=== PATIENT | female | born 1935 | race African-American/Black ===

== ENCOUNTER 2016-11-12 00:32 | Observation (INO) | payer OTHER ==
[~2016-11-12] VITALS: Ht 162.6 cm; Wt 67.5 kg
[2016-11-12 01:03] LABS: HEMATOCRIT 37.5 % (36.0-46.0); MCH 31.2 PG (29.0-34.0); MCHC 34.4 G/DL (30.0-36.0); MCV 90.8 FL (83-99); MEAN PLAT.VOLUME 11.1 uM^3 (9.5-12.4); PLATELET COUNT 225 K/uL (156-360); RBC DIS.WIDTH-CV 12.4 % (11.8-14.6); RBC DIS.WIDTH-SD 41.2 % (39-53); RED BLOOD COUNT 4.13 M/uL (3.80-5.20); WHITE BLOOD COUNT 15.7 K/uL (4.1-10.2)
[2016-11-12 01:17] LABS: CHLORIDE 108 mEq/L (99-109); POTASSIUM 4.6 mEq/L (3.7-5.4); SODIUM 140 mEq/L (136-147)
[2016-11-12 01:19] LABS: GLUCOSE 121 mg/dL (70-99)
[2016-11-12 01:21] LABS: ANION GAP 15 MEQ/L (2-14)
[2016-11-12 01:23] LABS: GFR ESTIMATE (CALCULATED) 56 mL/min/
[2016-11-12 01:24] LABS: UREA NITROGEN (BUN) 19 mg/dL (9-23)
[2016-11-12 01:26] LABS: CREATINE KINASE 230 IU/L (1-294); TOTAL CK 230 IU/L (1-294)
[2016-11-12 01:34] LABS: CK-MB 3.5 ng/mL (0.0-4.9)
[2016-11-12 03:17] LABS: ADD MIUA? YES; BILIRUBIN NEGATIVE; BLOOD SMALL; COLOR YELLOW ((YELLOW)); GLUCOSE (STRIP) NEGATIVE; KETONES 5; LEUKOCYTES TRACE; NITRITE NEGATIVE; PROTEIN (STRIP) 30; SPECIFIC GRAVITY 1.015 (1.000-1.030); UROBILINOGEN 0.2 MG/DL (0.2-1.0)
[2016-11-12 03:54] LABS: BACTERIA NONE SEEN /HPF; EPITHELIAL CELLS 1+ /HPF; MUCUS TRACE /LPF; UCUL ADDED? NO; WHITE BLOOD CELLS 0-5 /HPF (0-5)
[2016-11-12] MEDS ORDERED: AMLODIPINE BES2.5 MG PO (04:06)
[2016-11-12] MEDS ORDERED: LEVOTHYROXINE112 MCG PO (04:08)
[2016-11-12] MEDS ORDERED: CLONAZEPAM1 MG PO (04:09)
[2016-11-12] MEDS ORDERED: PAROXETINE HCL40 MG PO (04:10)
[2016-11-12] MEDS ORDERED: LOSARTAN POTAS100 MG PO (04:10)
[2016-11-12 06:13] VITALS: BP 145/64
[2016-11-12 11:36] VITALS: BP 146/65
[2016-11-12] MEDS ORDERED: REFRESH TEARS15 ML BOTH EYES (12:52)
[2016-11-12] MEDS ORDERED: TOBRADEX ST EYE5 ML RIGHT EYE (12:53)
[2016-11-12 15:44] VITALS: BP 139/64
[2016-11-12 19:30] VITALS: BP 128/59
[2016-11-12 23:31] VITALS: BP 191/83
[2016-11-13 00:34] VITALS: BP 170/76
[2016-11-13 02:00] VITALS: BP 128/59
[2016-11-13 03:56] VITALS: BP 145/86
[2016-11-13 05:37] LABS: EOSINOPHIL (%) 1.8 % (0-5); EOSINOPHIL COUNT 0.2 K/uL (0-0.3); HEMATOCRIT 34.2 % (36.0-46.0); IMMATURE GRANULOCYTE (%) 0.2 % (0.0-0.7); INSTRUMENT ABS NEUTROPHIL CT 4.4 K/uL; LYMPHOCYTE COUNT 3.1 K/uL (1.0-2.8); MCH 30.9 PG (29.0-34.0); MCHC 33.3 G/DL (30.0-36.0); MCV 92.7 FL (83-99); MEAN PLAT.VOLUME 10.9 uM^3 (9.5-12.4); MONOCYTE (%) 10.6 % (3-12); MONOCYTE COUNT 0.9 K/uL (0-0.8); NEUTROPHIL (%) 50.9 % (45-76); NEUTROPHIL COUNT 4.4 K/uL (1.8-6.4); PLATELET COUNT 203 K/uL (156-360); RBC DIS.WIDTH-CV 12.6 % (11.8-14.6); RBC DIS.WIDTH-SD 42.7 % (39-53); RED BLOOD COUNT 3.69 M/uL (3.80-5.20); WHITE BLOOD COUNT 8.7 K/uL (4.1-10.2)
[2016-11-13 06:03] LABS: ANION GAP 7 MEQ/L (2-14); CHLORIDE 107 MEQ/L (99-109); GFR ESTIMATE (CALCULATED) > 59 mL/min/; GLUCOSE 98 mg/dL (70-99); POTASSIUM 3.9 MEQ/L (3.7-5.4); SAMPLE HEMOLYSIS CHECK 0; SAMPLE ICTERIC CHECK 0; SAMPLE LIPEMIA CHECK 0; SODIUM 140 MEQ/L (136-147); UREA NITROGEN (BUN) 14 mg/dL (9-23)
[2016-11-13 09:33] VITALS: BP 139/75
[2016-11-13 11:29] VITALS: BP 133/60
[2016-11-13] MEDS ORDERED: CEFTIN250 MG PO (13:26)
== END 2016-11-13 19:52 | disposition home or self-care (01) ==
LOC: EDBD 00:32 → EME 00:32 → 5WEST 04:49 → EDOF 04:49 → ENRESERV 04:50 → 5WEST 05:59
PROVIDERS: Emergency Medicine; Hospitalist
DX: R25.2 Cramp and spasm (principal); M62.830 Muscle spasm of back; R26.2 Difficulty in walking, not elsewhere classified; F41.9 Anxiety disorder, unspecified; R25.1 Tremor, unspecified; T42.4X6A Underdosing of benzodiazepines, initial encounter; I10 Essential (primary) hypertension; E03.9 Hypothyroidism, unspecified; Z82.49 Family history of ischemic heart disease and other diseases of the circulatory system; Z83.3 Family history of diabetes mellitus; Z83.49 Family history of other endocrine, nutritional and metabolic diseases; H91.90 Unspecified hearing loss, unspecified ear
CPT/HCPCS: 72131; 80048; 81003; 82550; 82553; 85025; 85027; 99281; 99284; G0378; G8978 GP CJ; G8979 GP CH; G8987 GO CJ; G8988 GO CH; J0696; J1644; J2060; J3010; J7030; J7050